=== PATIENT | female | born 1975 | race Caucasian/White ===

== ENCOUNTER 2017-03-08 05:08 | Inpatient (IN) | payer OTHER ==
[2017-03-08 05:23] LABS: ABSOLUTE BASOPHILS # (AUTO) 0.1 10^3/uL (0.0-0.2); ABSOLUTE EOSINOPHILS # (AUTO) 0.3 10^3/uL (0.0-0.6); ABSOLUTE LYMPHOCYTES (AUTO) 2.3 10^3/uL (0.5-4.7); ABSOLUTE MONOCYTES (AUTO) 1.1 10^3/uL (0.1-1.4); ABSOLUTE NEUT (AUTO) 6.7 10^3/uL (1.7-8.2); BASOPHILS % (AUTO) 0.5 % (0-2); EOSINOPHILS % (AUTO) 2.6 % (0-6); HEMATOCRIT 34.3 % (36.0-47.0); HEMOGLOBIN 11.3 g/dL (12.0-15.5); HGB HCT DIFFERENCE -0.4; LYMPHOCYTES % (AUTO) 21.7 % (13-45); MEAN CORPUSCULAR HEMOGLOBIN 31.8 pg (27.0-33.4); MEAN CORPUSCULAR HGB CONC 32.9 g/dL (32.0-36.0); MEAN CORPUSCULAR VOLUME 97 fl (80-97); MONOCYTES % (AUTO) 10.3 % (3-13); RED BLOOD COUNT 3.54 10^6/uL (3.72-5.28); SEGMENTED NEUTROPHILS % (AUTO) 64.9 % (42-78); WHITE BLOOD COUNT 10.4 10^3/uL (4.0-10.5)
[2017-03-08] MEDS ORDERED: CEFAZOLIN 2 GM/D5W RTU 2 GM/50 ML RTUPB IV SCH (05:45)
[2017-03-08] MEDS ORDERED: RINGERS SOLUTION,LACTATED 1,000 ML IV PRN (05:53)
[2017-03-08] MEDS ORDERED: CEFAZOLIN INJ 1 GM VIAL INJ PRN (06:07)
[2017-03-08] MEDS: RINGERS SOLUTION,LACTATED 1,000 ML IV PRN ×2 (06:24→14:59)
[2017-03-08 06:46] LABS: APPEARANCE,URINE SLIGHTLY-CLOUDY; BILIRUBIN,URINE NEGATIVE (NEGATIVE); GLUCOSE, URINE NEGATIVE (NEGATIVE); KETONES,URINE NEGATIVE (NEGATIVE); LEUKOCYTE ESTERASE,URINE TRACE (NEGATIVE); NITRITE,URINE NEGATIVE (NEGATIVE); PROTEIN,URINE NEGATIVE (NEGATIVE); URINE SPECIFIC GRAVITY 1.009; UROBILINOGEN,URINE NEGATIVE mg/dL (<2.0)
[2017-03-08] MEDS ORDERED: OXYTOCIN 10 UNIT/ML VIAL ONE (06:52)
[2017-03-08] MEDS ORDERED: EPHEDRINE SULFATE INJ 50 MG/1 ML AMPULE ONE (06:53)
[2017-03-08] MEDS ORDERED: FENTANYL CITRATE INJ/PF 100 MCG/2 ML AMPUL ONE (06:53)
[2017-03-08] MEDS ORDERED: MIDAZOLAM 2 MG/2 ML INJ ONE ×2 (06:53)
[2017-03-08] MEDS ORDERED: OXYTOCIN/NORMAL SALINE 20 UNIT/1,000 ML RTUINJ ONE (06:54)
[2017-03-08] MEDS ORDERED: ACETAMINOPHEN 100 ML IV ONE (06:54)
[2017-03-08 06:59] LABS: URINE BARBITURATES SCREEN NEGATIVE; URINE METHADONE SCREEN NEGATIVE; URINE OPIATES LOW NEGATIVE; URINE PHENCYCLIDINE SCREEN NEGATIVE
[2017-03-08] MEDS ORDERED: MORPHINE SULFATE 10 MG/ML INJ IV PRN (07:20)
[2017-03-08] MEDS ORDERED: PROMETHAZINE HCL INJ 25 MG/1 ML VIAL IV PRN ×3 (07:20→09:42)
[2017-03-08] MEDS ORDERED: OXYCODONE-ACETAMINOPHEN 5-325 MG TABLET PO PRN ×3 (07:20→09:42)
[2017-03-08] MEDS ORDERED: DIPHENHYDRAMINE HCL 50 MG/ML VIAL IV PRN (07:20)
[2017-03-08] MEDS ORDERED: MEPERIDINE HCL/PF INJ 25 MG/1 ML DISP.SYRIN IV PRN (07:20)
[2017-03-08] MEDS ORDERED: FENTANYL CITRATE INJ/PF 100 MCG/2 ML AMPUL IV PRN ×3 (07:20)
--- NOTE | 2017-03-08 09:41 | Operative Report ---
Operative Report PREOPERATIVE DIAGNOSIS: AMA, Type II DM, H/o Prior C/S, Undesired Fertility, Macrosomia, Uterine synechiae POSTOPERATIVE DIAGNOSIS: KORY delivered OPERATION: RELTCS, BTL SURGEON: SHAUN FERRER ANESTHESIA: Spinal TISSUE REMOVED OR ALTERED: placenta and cord sent to pathology COMPLICATIONS: None INTRAOPERATIVE FINDINGS: normal uterus, minimal scar tissue from bladder to uterus, Normal tubes/ovaries but blood vessels too close to fallopian tubes to perform Navarro therefore Filschie clips x 2 bilaterally, VMI delivered cephalic presentation, Apgars 8/9, weight 4245g, 9#6oz, Meconium noted at AROM PROCEDURE: Anesthesia provider: [Dr. Ruiz. Gracy Knapp MACHINE RECORDS UNITS SUPERVISOR] Estimated blood loss: [650 mL] Urine output: [100 mL of clear urine at the conclusion of procedure] IV fluids: [1200 mL] Complications: [None] Specimens: [Placenta and cord] Indications: [41-year-old at 39+0 weeks estimated gestational age with complicated by advanced maternal age and pre-gestational diabetes. Patient with a history of a then me successful . Current also complicated by macrosomia with weight of greater than 4500 g on Sunday. Reviewed indications for repeat with macrosomia type 2 diabetes. Risks benefits alternatives were reviewed with the patient and the patient desires to proceed with planned procedure. Patient also with undesired fertility and desires a tubal ligation at the time of repeat section] Procedure: The patient was taken to the operating room where spinal anesthesia was obtained and found to be adequate. She was then prepped and draped in the normal sterile fashion and placed in the dorsal supine position with a leftward tilt. A Pfannenstiel skin incision was then made and carried through to the underlying layers of the fascia with the scalpel. The fascia was incised in the midline and the incision extended laterally with the Saeed scissors. The superior aspect of the fascial incision was then grasped with [place] clamps elevated and the underlying rectus muscles dissected off [bluntly]. Attention was then turned to the inferior aspect of the fascial incision which in a similar fashion was grasped, tented up with [place] clamps, and the rectus muscles dissected off [bluntly]. The rectus muscles were then in the midline and the peritoneum at the amount identified and entered [bluntly]. The peritoneal incision was then extended superiorly and inferiorly with good visualization of the bladder. The bladder blade was inserted and the vesicouterine peritoneum identified grasped with [place] pickups and entered sharply with the Metzenbaum scissors. This incision was then extended laterally with the Metzenbaum scissors and a bladder flap created digitally. The bladder blade was then reinserted and the lower uterine segment incised in a transverse fashion with the scalpel. The uterine incision was then extended bluntly. The bladder blade was removed and the infant's head was delivered from cephalic presentation atraumatically. The nose and mouth were suctioned and the cord doubly clamped and cut. And the infant was handed off to waiting pediatricians. The placenta was then delivered spontaneously and the uterus exteriorized and cleared of all clots and debris. The uterine incision was then repaired with 1- 0 Vicryl in a running locked fashion. A second layer of the same suture was used to obtain hemostasis via imbrication of the initial layer. The bladder flap was then repaired with 3-0 chromic in a running fashion. The right fallopian tube was then followed out to the fimbriated end and Filshie clip 2 was placed in the mid ampullary portion of the right fallopian tube. This was repeated on the patient's left fallopian tube with placement of Filshie clips 2 . The uterus was returned to the patient's abdomen and Interceed was placed overlying the uterine incision to prevent adhesions. The gutters were cleared of all clots and debris. All operative sites were noted to be hemostatic. The rectus muscles were then reapproximated with 2-0 Vicryl in interrupted fashion. The fascia was reapproximated with 0 Vicryl in a running fashion from each lateral edge to the midline. The skin was closed with 3-0 Monocryl in a running subcuticular fashion with overlying Dermabond for additional dressing as well as wound closure. The patient tolerated the procedure well. Sponge lap needle and instrument counts are correct times 2. 2 g of Ancef were given prior to skin incision. The patient was taken to the recovery area awake and in stable condition.
[2017-03-08] MEDS ORDERED: OXYTOCIN/NORMAL SALINE 1,000 ML IV PRN (09:42)
[2017-03-08] MEDS ORDERED: MEASLES,MUMPS&RUBELLA VACC/PF 0.5 ML VIAL SUBCUT PRN (09:42)
[2017-03-08] MEDS ORDERED: DIPH/PERTUSS(ACELL)/TETANUS VAC/PF 0.5 ML SYR (>=10YO) IM PRN (09:42)
[2017-03-08] MEDS ORDERED: ACETAMINOPHEN 100 ML IV PRN (09:42)
[2017-03-08] MEDS ORDERED: ACETAMINOPHEN 325 MG TABLET PO PRN (09:42)
[2017-03-08] MEDS ORDERED: SIMETHICONE 80 MG TAB.CHEW PO PRN (09:42)
[2017-03-08] MEDS ORDERED: HYDROMORPHONE HCL INJ/PF 2 MG/ML AMPULE IV PRN (09:42)
[2017-03-08] MEDS: DOCUSATE SODIUM 100 MG CAPSULE PO SCH ×2 (10:43→17:24)
[2017-03-08] MEDS: PRENATAL VITAMIN W-O CA NO5/FE FUMARATE/FA CAPSULE PO SCH (10:43)
--- NOTE | 2017-03-08 11:10 | PDOC DELIVERY SUMMARY ---
Delivery Summary - Maternal Hx : V Hx Para: III Hx # Term Pregnancies: 3 Hx Total # of Abortions (Sponateous & Elective): 1 Number of Living Children: 3 JAMMIE: 03/15/17 Gestational Age: 39 Risk Factors: Other - Pregestational Diabetes Risk Factors/Complications Other:: AMA, Pregestational DM, Macrosomia, H/o Prior C/S, H/o prior Ruptured Membranes: AROM Fluids: Meconium Stained - Delivery Labor: Not In Labor Presentation: Vertex Heart Rate Monitoring: Done Pre-Operatively Uterine Contraction Monitoring: External Support Person Present: Yes Location: OR : Scheduled Placenta: Within Normal Limits Placenta Description: normal but reported synechiae on US during Number of Vessels (Cord): 3 Nuchal Cord: Yes Delivery of Placenta Date: 03/08/17 Delivery of Placenta Time: 08:10 - Medications Type of Anesthesia:: Spinal - Intrapartum Medications Intrapartum Medications: pitocin - Infant Assess and Care Baby 1 Male Delivery of Infant Date: 03/08/17 Delivery of Infant Time: 08:09 at 1 minute: 8 at 5 minutes: 9 Preprinted Number On Band: [id number] Skin to Skin: No To Nursery At: 08:18 Mode of Transport: Bassinet Weight: 43.54 kg Length: 22 in - Delivery Personnel Nursery RN: REILLY SANTIZO RN: MUSTAPHA RENE RN: HEBER LEYVA MD: SHAUN FERRER Foreign Language Stenographer: LOY MELENDEZ
[2017-03-08] MEDS: OXYCODONE-ACETAMINOPHEN 5-325 MG TABLET PO PRN ×2 (12:26→22:54)
[2017-03-08] MEDS ORDERED: KETOROLAC TROMETHAMINE INJ/PF 30 MG/1 ML SDV IV SCH (14:00)
[2017-03-08] MEDS ORDERED: PHENYLEPHRINE HCL INJ/PF 10 MG/1 ML SDV ONE (15:45)
[2017-03-08] MEDS ORDERED: ONDANSETRON HCL INJ/PF 4 MG/2 ML SDV ONE (15:45)
[2017-03-08] MEDS ORDERED: GLYCOPYRROLATE INJ 0.4 MG/2 ML VIAL ONE (15:45)
[2017-03-08] MEDS ORDERED: KETOROLAC TROMETHAMINE 60 MG/2 ML SDV ONE (15:45)
[2017-03-08] MEDS: GLYBURIDE 2.5 MG TABLET PO SCH (17:24)
[2017-03-08] MEDS: KETOROLAC TROMETHAMINE INJ/PF 30 MG/1 ML SDV IV SCH (17:25)
[2017-03-09] MEDS: KETOROLAC TROMETHAMINE INJ/PF 30 MG/1 ML SDV IV SCH (02:07)
[2017-03-09 09:19] LABS: HEMATOCRIT 33.4 % (36.0-47.0); HEMOGLOBIN 10.8 g/dL (12.0-15.5); MEAN CORPUSCULAR HEMOGLOBIN 31.9 pg (27.0-33.4); MEAN CORPUSCULAR HGB CONC 32.2 g/dL (32.0-36.0); MEAN CORPUSCULAR VOLUME 99 fl (80-97); RED BLOOD COUNT 3.38 10^6/uL (3.72-5.28); RED CELL DISTRIBUTION WIDTH 13.8 % (11.5-14.0); WHITE BLOOD COUNT 16.8 10^3/uL (4.0-10.5)
[2017-03-09] MEDS: GLYBURIDE 2.5 MG TABLET PO SCH ×2 (10:05→17:59)
[2017-03-09] MEDS: DOCUSATE SODIUM 100 MG CAPSULE PO SCH ×2 (10:05→18:00)
[2017-03-09] MEDS: IBUPROFEN 800 MG TABLET PO SCH ×3 (10:05→21:59)
[2017-03-09] MEDS: PRENATAL VITAMIN W-O CA NO5/FE FUMARATE/FA CAPSULE PO SCH (10:05)
--- NOTE | 2017-03-09 12:36 | PDOC PROGRESS REPORT ---
Subjective-OB Subjective: Post Delivery Day: 41 year old. Denies any needs at this time Physical Exam (OB) Vital Signs: Temp Pulse Resp BP Pulse Ox 98.3 F 80 18 138/81 H 97 03/09/17 08:28 03/09/17 08:28 03/09/17 08:28 03/09/17 08:28 03/09/17 08:28 Intake & Output 03/08/17 03/09/17 03/10/17 06:59 06:59 06:59 Intake Total 200 250 Output Total 4150 Balance -3950 250 Weight 102 kg - Dressing Removed: No - pink peripad in place over surgical glue Incision: Open Closure Type: Surgical Glue - Bilateral Tubal Ligation Dressing Removed: No - Lochia Lochia Amount: Scant < 10 ml Lochia Color: Rubra/Red - Abdomen Description: Tender, Soft Hernia Present: No Bowel Sounds: Normoactive Flatus Presence: Present Stool: No Fundal Description: Firm, Midline Fundal Height: u/u - u/2 Objective-Diagnostic Laboratory: 03/09/17 08:25 03/09/17 08:25 WBC 16.8 H RBC 3.38 L Hgb 10.8 L Hct 33.4 L MCV 99 H MCH 31.9 MCHC 32.2 RDW 13.8 Plt Count 163
[2017-03-09] MEDS: OXYCODONE-ACETAMINOPHEN 5-325 MG TABLET PO PRN (13:10)
[2017-03-10] MEDS: IBUPROFEN 800 MG TABLET PO SCH ×2 (02:27→08:50)
[2017-03-10 06:29] LABS: HEMATOCRIT 31.9 % (36.0-47.0); HEMOGLOBIN 10.7 g/dL (12.0-15.5); HGB HCT DIFFERENCE 0.2; MEAN CORPUSCULAR HEMOGLOBIN 32.1 pg (27.0-33.4); MEAN CORPUSCULAR HGB CONC 33.6 g/dL (32.0-36.0); MEAN CORPUSCULAR VOLUME 96 fl (80-97); RED BLOOD COUNT 3.33 10^6/uL (3.72-5.28); RED CELL DISTRIBUTION WIDTH 13.8 % (11.5-14.0); WHITE BLOOD COUNT 14.7 10^3/uL (4.0-10.5)
[2017-03-10 08:35] VITALS: BP 134/76
[2017-03-10] MEDS: GLYBURIDE 2.5 MG TABLET PO SCH (08:50)
[2017-03-10] MEDS: DOCUSATE SODIUM 100 MG CAPSULE PO SCH (08:50)
[2017-03-10] MEDS: PRENATAL VITAMIN W-O CA NO5/FE FUMARATE/FA CAPSULE PO SCH (08:51)
--- NOTE | 2017-03-10 10:10 | PDOC PROGRESS REPORT ---
Subjective-OB Subjective: Post Delivery Day: 41 year old. Denies any needs at this time. Ready to go home. Physical Exam (OB) Vital Signs: Temp Pulse Resp BP Pulse Ox 98.2 F 77 16 134/76 H 96 03/10/17 07:35 03/10/17 07:35 03/10/17 07:35 03/10/17 07:35 03/10/17 07:35 Intake & Output 03/09/17 03/10/17 03/11/17 06:59 06:59 06:59 Intake Total 200 1200 Output Total 4150 Balance -3950 1200 Weight 102 kg - Dressing Removed: No - pink peripad in place over surgical glue Incision: Open Closure Type: Surgical Glue - Bilateral Tubal Ligation Dressing Removed: No - Lochia Lochia Amount: Scant < 10 ml Lochia Color: Rubra/Red - Abdomen Description: Tender, Soft Hernia Present: No Bowel Sounds: Normoactive Flatus Presence: Present Stool: No Fundal Description: Firm, Midline Fundal Height: u/u - u/2 Objective-Diagnostic Laboratory: 03/10/17 06:07 03/10/17 06:07 WBC 14.7 H RBC 3.33 L Hgb 10.7 L Hct 31.9 L MCV 96 MCH 32.1 MCHC 33.6 RDW 13.8 Plt Count 169
--- NOTE | 2017-03-10 10:18 | PDOC DISCHARGE SUMMARY ---
Final Diagnosis Discharge Date: 03/10/17 - Final Diagnosis (1) AMA (advanced maternal age) multigravida 35+ Is this a current diagnosis for this admission?: Yes (2) Delivery by elective caesarean section Is this a current diagnosis for this admission?: Yes (3) Diabetes mellitus affecting Is this a current diagnosis for this admission?: Yes (4) Obesity Is this a current diagnosis for this admission?: Yes (5) Is this a current diagnosis for this admission?: Yes (6) Undesired fertility Is this a current diagnosis for this admission?: Yes Discharge Data - Discharge Medication Home Medications: Albuterol Sulfate [Ventolin Hfa 8 gm Mdi (1 Mdi/ER Disp)] 2 inhaler PO PRN PRN 11/21/15 Vit No.129/Iron/FA [ One Daily Tablet] 1 each PO DAILY Docusate Sodium [Colace 100 mg Capsule] 100 mg PO BID #30 capsule 03/10/17 Glyburide [Diabeta 2.5 mg Tablet] 2.5 mg PO BIDBS #60 tablet 03/10/17 Ibuprofen [Motrin 800 mg Tablet] 800 mg PO Q6A #30 tablet 03/10/17 Oxycodone HCl/Acetaminophen [Percocet 5-325 mg Tablet] 1 tab PO Q4HP PRN #20 tablet 03/10/17 Gestational Age: 39.0 wks Reason(s) for Admission: Ceasarean Section-Repeat Procedures: NST, Ultrasound Intrapartum Procedure(s): : Low Cervical, Transverse - [place] Data Baby 1 Male at 1 minute: 8 at 5 minutes: 9 Weight: 4.252 kg Home with Mother: Yes Complications: No - Diagnosis Test Laboratory: Temp Pulse Resp BP Pulse Ox 98.2 F 77 16 134/76 H 96 03/10/17 07:35 03/10/17 07:35 03/10/17 07:35 03/10/17 07:35 03/10/17 07:35 03/08/17 03/08/17 03/09/17 05:00 05:10 08:25 RBC 3.54 L 3.38 L Hgb 11.3 L 10.8 L Hct 34.3 L 33.4 L Urine Opiates Screen NEGATIVE 03/10/17 06:07 RBC 3.33 L Hgb 10.7 L Hct 31.9 L Urine Opiates Screen - Discharge information/Instructions Discharge Activity: Activity As Tolerated, Balance Activity w/Rest, No Lifting Over 10 Pounds, No Lifting/Push/Pulling, Non-Ambulatory Child, Pelvic Rest, Slowly Increase Activity, No tub bath Discharge Diet: Regular Disposition: HOME, SELF-CARE Follow up with: [facility] in: 1, Weeks
== END 2017-03-10 12:12 | disposition home or self-care (01) | DRG 765 ==
LOC: 2S 05:08
PROVIDERS: ADMIT Student in an Organized Health Care Education/Training Program; ATTEND Student in an Organized Health Care Education/Training Program
PROC: 0UL70CZ Occlusion of Bilateral Fallopian Tubes with Extraluminal Device, Open Approach (ICD-10-PCS; 2017-03-08)
PROC: 4A1HXCZ Monitoring of Products of Conception, Cardiac Rate, External Approach (ICD-10-PCS; 2017-03-08)
PROC: 10D00Z1 Extraction of Products of Conception, Low, Open Approach (ICD-10-PCS; principal; 2017-03-08 07:45)
DX: O34.211 Maternal care for low transverse scar from previous cesarean delivery (principal); O24.12 Pre-existing type 2 diabetes mellitus, in childbirth; Z68.41 Body mass index [BMI] 40.0-44.9, adult; E11.9 Type 2 diabetes mellitus without complications; O99.214 Obesity complicating childbirth; E66.9 Obesity, unspecified; O77.0 Labor and delivery complicated by meconium in amniotic fluid; Z79.899 Other long term (current) drug therapy; Z80.3 Family history of malignant neoplasm of breast; Z83.3 Family history of diabetes mellitus; Z82.5 Family history of asthma and other chronic lower respiratory diseases; Z82.49 Family history of ischemic heart disease and other diseases of the circulatory system; Z88.0 Allergy status to penicillin; Z3A.39 39 weeks gestation of pregnancy; Z37.0 Single live birth
CPT/HCPCS: 1961; 36415; 59025; 80307; 81001; 82962; 85025; 85027; 86850; 86900; 86901; 88307; 94799; C1765; J0131; J1885; J2250; J2370; J2405; J2590; J3010; J3490; J7120

== ENCOUNTER 2017-03-17 06:15 | Emergency (ER) | payer OTHER ==
[2017-03-17] MEDS ORDERED: METOCLOPRAMIDE HCL INJ/PF 10 MG/2 ML SDV IV ONE (06:43)
[2017-03-17] MEDS ORDERED: DIPHENHYDRAMINE HCL 50 MG/ML VIAL IV ONE (06:44)
[2017-03-17] MEDS ORDERED: KETOROLAC TROMETHAMINE INJ/PF 30 MG/1 ML SDV IV ONE (06:44)
[2017-03-17 06:51] LABS: ABSOLUTE BASOPHILS # (AUTO) 0.1 10^3/uL (0.0-0.2); ABSOLUTE EOSINOPHILS # (AUTO) 0.5 10^3/uL (0.0-0.6); ABSOLUTE LYMPHOCYTES (AUTO) 1.8 10^3/uL (0.5-4.7); ABSOLUTE NEUT (AUTO) 6.5 10^3/uL (1.7-8.2); BASOPHILS % (AUTO) 0.9 % (0-2); EOSINOPHILS % (AUTO) 5.1 % (0-6); HEMATOCRIT 38.2 % (36.0-47.0); HEMOGLOBIN 12.8 g/dL (12.0-15.5); HGB HCT DIFFERENCE 0.2; MEAN CORPUSCULAR HEMOGLOBIN 32.3 pg (27.0-33.4); MEAN CORPUSCULAR HGB CONC 33.6 g/dL (32.0-36.0); MEAN CORPUSCULAR VOLUME 96 fl (80-97); MONOCYTES % (AUTO) 10.3 % (3-13); RED BLOOD COUNT 3.97 10^6/uL (3.72-5.28); RED CELL DISTRIBUTION WIDTH 13.3 % (11.5-14.0); SEGMENTED NEUTROPHILS % (AUTO) 65.7 % (42-78); WHITE BLOOD COUNT 9.9 10^3/uL (4.0-10.5)
[2017-03-17 06:56] LABS: APPEARANCE,URINE CLEAR; BILIRUBIN,URINE NEGATIVE (NEGATIVE); GLUCOSE, URINE NEGATIVE (NEGATIVE); KETONES,URINE NEGATIVE (NEGATIVE); LEUKOCYTE ESTERASE,URINE NEGATIVE (NEGATIVE); NITRITE,URINE NEGATIVE (NEGATIVE); PROTEIN,URINE NEGATIVE (NEGATIVE); URINE SPECIFIC GRAVITY 1.003; UROBILINOGEN,URINE NEGATIVE mg/dL (<2.0)
[2017-03-17 07:11] LABS: ALANINE AMINOTRANSFERASE 42 U/L (9-52); ALBUMIN 3.6 g/dL (3.5-5.0); ALKALINE PHOSPHATASE 110 U/L (38-126); ANION GAP 13 (5-19); ASPARTATE AMINO TRANSFERASE 15 U/L (14-36); BILIRUBIN,DIRECT 0.2 mg/dL (0.0-0.4); BILIRUBIN,TOTAL 0.3 mg/dL (0.2-1.3); BLOOD UREA NITROGEN 15 mg/dL (7-20); CALCIUM 9.6 mg/dL (8.4-10.2); CARBON DIOXIDE 24 mmol/L (22-30); CHLORIDE 106 mmol/L (98-107); CREATININE RESULT 0.69 mg/dL (0.52-1.25); GLUCOSE 89 mg/dL (75-110); LDH 553 U/L (313-618); POTASSIUM 4.4 mmol/L (3.6-5.0); SODIUM 143.1 mmol/L (137-145); TOTAL PROTEIN 6.5 g/dL (6.3-8.2)
--- NOTE | 2017-03-17 07:49 | ER Document Report ---
ED General - General Chief Complaint: Headache Stated Complaint: HEADACHE,BLOOD PRESSURE PROBLEM Time Seen by Provider: 03/17/17 06:42 TRAVEL OUTSIDE OF THE [place] IN LAST 30 DAYS: No - HPI Patient complains to provider of: Headache swelling Notes: Patient is coming in today for evaluation of headache swelling elevated blood pressure patient is one-week after . Patient denies any complications during the states that her blood pressure was elevating slightly during the . Patient states that prior to the ER visit was started on nifedipine by her FINAL INSPECTOR. Patient states headache on top of the head rates 2 out of 5 but no photophobia no history of trauma. Patient states more or less achy states similar headaches in the past. States no relief with the Motrin taken at home. Patient is currently breast-feeding. States unable to elevate her legs at home due to the - Related Data Allergies/Adverse Reactions: amoxicillin [Amoxicillin] Allergy (Verified 03/17/17 06:43) Past Medical History - Social History Smoking Status: Never Smoker Chew tobacco use (# tins/day): No Frequency of alcohol use: None Drug Abuse: None Family History: Reviewed & Not Pertinent Patient has suicidal ideation: No Patient has homicidal ideation: No - Past Medical History Cardiac Medical History: Reports: Hx Hypertension Pulmonary Medical History: Reports: Hx Asthma Endocrine Medical History: Reports: Hx Diabetes Mellitus Type 2 Renal/ Medical History: Denies: Hx Peritoneal Dialysis Past Surgical History: Reports: Hx Section - x2, Hx Orthopedic Surgery - R knee x 2, Hx Tonsillectomy - Adenoids - Immunizations Hx Diphtheria, Pertussis, Tetanus Vaccination: Yes Review of Systems - Review of Systems Constitutional: Other - Swelling headache EENT: No symptoms reported Cardiovascular: No symptoms reported Respiratory: No symptoms reported Gastrointestinal: No symptoms reported Genitourinary: No symptoms reported Female Genitourinary: No symptoms reported Musculoskeletal: No symptoms reported Skin: No symptoms reported Hematologic/Lymphatic: No symptoms reported Neurological/Psychological: No symptoms reported Physical Exam - Vital signs Vitals: Temp Pulse Resp BP Pulse Ox 98.1 F 85 16 144/93 H 98 03/17/17 06:19 03/17/17 06:19 03/17/17 06:19 03/17/17 06:19 03/17/17 06:19 Interpretation: Normal - General General appearance: Appears well, Alert - HEENT Head: Normocephalic, Atraumatic Eyes: Normal Pupils: PERRL - Respiratory Respiratory status: No respiratory distress Chest status: Nontender Breath sounds: Normal Chest palpation: Normal - Cardiovascular Rhythm: Regular Heart sounds: Normal auscultation Murmur: No - Abdominal Inspection: Normal Distension: No distension Bowel sounds: Normal Tenderness: Nontender Organomegaly: No organomegaly - Back Back: Normal, Nontender - Extremities General upper extremity: Normal inspection, Nontender, Normal color, Normal ROM , Normal temperature General lower extremity: Normal inspection, Nontender, Edema - Bilateral no signs of infection noted tenderness to palpation of calves or palpable cords, Normal color, Normal ROM, Normal temperature, Normal weight bearing. No: Sadi' s sign - Neurological Neuro grossly intact: Yes Cognition: Normal Orientation: AAOx4 Raymond Coma Scale Eye Opening: Spontaneous Amor Coma Scale Verbal: Oriented Amor Coma Scale Motor: Obeys Commands Amor Coma Scale Total: 15 Speech: Normal Motor strength normal: LUE, RUE, LLE, RLE Sensory: Normal - Psychological Associated symptoms: Normal affect, Normal mood - Skin Skin Temperature: Warm Skin Moisture: Dry Skin Color: Normal Course - Re-evaluation Re-evalutation: 03/17/17 07:48 Evaluated for headache elevated blood pressure and swelling in the legs. Will evaluate patient for possible preeclampsia. Patient is neurologically intact signs of any neurological deficits will treat headache with ketorolac Benadryl and Reglan. 03/17/17 08:38 Discuss lab results with FINAL INSPECTOR Dr. Copeland agreed no signs of preeclampsia. Patient's headache improved with medications given. Patient encouraged to follow-up with her FINAL INSPECTOR as scheduled will discharge patient home - Vital Signs Vital signs: Temp Pulse Resp BP Pulse Ox 98.3 F 87 14 118/75 99 03/17/17 08:21 03/17/17 08:21 03/17/17 08:21 03/17/17 08:21 03/17/17 08:21 - Laboratory Result Diagrams: 03/17/17 06:35 03/17/17 06:35 Laboratory results interpreted by me: 03/17/17 06:35 Urine Blood SMALL H Discharge - Discharge Clinical Impression: Leg swelling HTN (hypertension) Qualifiers: Hypertension type: unspecified secondary hypertension Qualified Code(s): I15.9 - Secondary hypertension, unspecified Condition: Good Disposition: HOME, SELF-CARE Instructions: Headache ([facility]), Edema, Peripheral ([facility]) Additional Instructions: Continue to take Motrin for headaches please make sure you are drinking plenty water to stay hydrated. While laying in bed at night or when you are resting please make sure that she elevates her legs to aid in the swelling. Follow-up with your FINAL INSPECTOR as stated. Referrals: MARITZA RUTLEDGE NP [Primary Care Provider] - Follow up as needed
[2017-03-17 08:22] VITALS: BP 118/75
== END 2017-03-17 08:45 | disposition home or self-care (01) ==
LOC: ER 06:15
DX: O90.89 Other complications of the puerperium, not elsewhere classified (principal); R22.43 Localized swelling, mass and lump, lower limb, bilateral; R03.0 Elevated blood-pressure reading, without diagnosis of hypertension; R51 Headache; Z88.0 Allergy status to penicillin
CPT/HCPCS: 99284; 96374; 96375; 36415; 83615; 85025; 80053; 81001; J1200; J1885; J2765

== ENCOUNTER → 2017-12-04 | Outpatient (CLI) | payer OTHER ==
[2017-12-05 09:22] LABS: HEMATOCRIT 38.5 % (36.0-47.0); MEAN CORPUSCULAR HEMOGLOBIN 31.7 pg (27.0-33.4); MEAN CORPUSCULAR HGB CONC 33.8 g/dL (32.0-36.0); MEAN CORPUSCULAR VOLUME 94 fl (80-97); PLATELET COUNT 341 10^3/uL (150-450); RED CELL DISTRIBUTION WIDTH 12.6 % (11.5-14.0); WHITE BLOOD COUNT 9.5 10^3/uL (4.0-10.5)
[2017-12-05 09:44] LABS: ALANINE AMINOTRANSFERASE 27 U/L (9-52); ALBUMIN 4.2 g/dL (3.5-5.0); ALKALINE PHOSPHATASE 87 U/L (38-126); ANION GAP 11 (5-19); ASPARTATE AMINO TRANSFERASE 14 U/L (14-36); BILIRUBIN,DIRECT 0.4 mg/dL (0.0-0.4); BILIRUBIN,TOTAL 0.4 mg/dL (0.2-1.3); BLOOD UREA NITROGEN 11 mg/dL (7-20); CALCIUM 9.6 mg/dL (8.4-10.2); CARBON DIOXIDE 25 mmol/L (22-30); CHLORIDE 104 mmol/L (98-107); GLUCOSE 125 mg/dL (75-110); POTASSIUM 4.6 mmol/L (3.6-5.0); SODIUM 140.1 mmol/L (137-145); TOTAL PROTEIN 7.3 g/dL (6.3-8.2); TRIGLYCERIDES 101 mg/dL (<150)
[2017-12-05 09:55] LABS: DIRECT LDL 125 mg/dL (<100)
[2017-12-05 10:22] LABS: ERYTHROCYTE SEDIMENTATION RATE 23 mm/hr (0-20)
== END ==
LOC: OD 13:00
PROVIDERS: ATTEND Nurse Practitioner Primary Care
DX: M25.50 Pain in unspecified joint (principal); R53.83 Other fatigue; E11.9 Type 2 diabetes mellitus without complications; E66.9 Obesity, unspecified
CPT/HCPCS: 36415; 80053; 80061; 82306; 82607; 82746; 84443; 85027; 85652; 86430